=== PATIENT | male | born 1965 | race Caucasian/White ===

== ENCOUNTER → 2021-03-19 07:56 | Outpatient (BNVA) | payer SELFPAY | PROVIDERS: Visit Provider Internal Medicine | DX: Z02.79 Encounter for issue of other medical certificate (principal) ==

== ENCOUNTER 2024-11-28 14:27 | Outpatient (AMB) | payer OTHER, SELFPAY | END 2024-11-29 14:11 | disposition home or self-care (01) | LOC: HO.HMGAL 14:27 | PROVIDERS: Visit Provider Registered Nurse Emergency | DX: J30.89 Other allergic rhinitis (principal) | CPT/HCPCS: 95117; 95165 ==

== ENCOUNTER 2024-12-12 13:11 | Outpatient (AMB) | payer OTHER, SELFPAY ==
--- OUTSIDE RECORDS SUMMARY | 2024-12-12 15:34 | XMS_ITS | Clinical Summary ---
Author Organization [facility] Address [address] [place] [address] Care Team Providers Care Embedded Firmware Developer Name Role Phone Unavailable Primary Care Provider Unavailabl e Social History Tobacco Use Types Packs/Day Years Used Date Smoking Tobacco: Never Assessed Sex and Gender Information Value Date Recorded Sex Assigned at Not on file Gender Identity Not on file Sexual Orientation Not on file Plan of Treatment Not on file
== END 2024-12-12 13:12 | disposition home or self-care (01) ==
LOC: HO.HMGAL 13:11
PROVIDERS: Visit Provider Registered Nurse Emergency
DX: J30.89 Other allergic rhinitis (principal)
CPT/HCPCS: 95117; 95165

== ENCOUNTER 2025-01-11 11:01 | Outpatient (AMB) | payer OTHER, SELFPAY | END 2025-01-11 11:02 | disposition home or self-care (01) | LOC: HO.HMGAL 11:01 | PROVIDERS: PCP Internal Medicine; Visit Provider Registered Nurse Emergency | DX: J30.89 Other allergic rhinitis (principal) | CPT/HCPCS: 95117; 95165 ==

== ENCOUNTER 2025-01-25 14:52 | Outpatient (AMB) | payer OTHER, SELFPAY ==
--- OUTSIDE RECORDS SUMMARY | 2025-01-25 21:08 | XMS_ITS | Clinical Summary ---
Author Organization [facility] Address [address] [place] [address] Care Team Providers Care Client Support Associate Name Role Phone Unavailable Primary Care Provider Unavailabl e Social History Tobacco Use Types Packs/Day Years Used Date Smoking Tobacco: Never Assessed Sex and Gender Information Value Date Recorded Sex Assigned at Not on file Gender Identity Not on file Sexual Orientation Not on file Plan of Treatment Not on file
== END 2025-01-25 14:52 | disposition home or self-care (01) ==
LOC: HO.HMGAL 14:52
PROVIDERS: PCP Internal Medicine; Visit Provider Registered Nurse Emergency
DX: J30.89 Other allergic rhinitis (principal)
CPT/HCPCS: 95117; 95165

== ENCOUNTER 2025-02-01 15:20 | Outpatient (AMB) | payer OTHER, SELFPAY ==
--- OUTSIDE RECORDS SUMMARY | 2025-02-01 19:43 | XMS_ITS | Clinical Summary ---
Author Organization [facility] Address [address] [place] [address] Care Team Providers Care Last Dipper Name Role Phone Unavailable Primary Care Provider Unavailabl e Social History Tobacco Use Types Packs/Day Years Used Date Smoking Tobacco: Never Assessed Sex and Gender Information Value Date Recorded Sex Assigned at Not on file Gender Identity Not on file Sexual Orientation Not on file Plan of Treatment Not on file
== END 2025-02-01 15:21 | disposition home or self-care (01) ==
LOC: HO.HMGAL 15:20
PROVIDERS: PCP Internal Medicine; Visit Provider Registered Nurse Emergency
DX: J30.89 Other allergic rhinitis (principal)
CPT/HCPCS: 95117; 95165

== ENCOUNTER 2025-02-20 14:32 | Outpatient (AMB) | payer OTHER, SELFPAY | END 2025-02-20 14:33 | disposition home or self-care (01) | LOC: HO.HMGAL 14:32 | PROVIDERS: PCP Internal Medicine; Visit Provider Registered Nurse Emergency | DX: J30.89 Other allergic rhinitis (principal) | CPT/HCPCS: 95117; 95165 ==

== ENCOUNTER 2025-03-06 11:32 | Outpatient (AMB) | payer OTHER, SELFPAY ==
--- OUTSIDE RECORDS SUMMARY | 2025-03-06 15:14 | XMS_ITS | Clinical Summary ---
Author Organization [facility] Address [address] [place] [address] Care Team Providers Care Manager Industrial Name Role Phone Unavailable Primary Care Provider Unavailabl e Social History Tobacco Use Types Packs/Day Years Used Date Smoking Tobacco: Never Assessed Sex and Gender Information Value Date Recorded Sex Assigned at Not on file Gender Identity Not on file Sexual Orientation Not on file Plan of Treatment Not on file
== END 2025-03-06 11:36 | disposition home or self-care (01) ==
LOC: HO.HMGAL 11:32
PROVIDERS: PCP Internal Medicine; Visit Provider Registered Nurse Emergency
DX: J30.89 Other allergic rhinitis (principal)
CPT/HCPCS: 95117; 95165

== ENCOUNTER 2025-03-20 14:03 | Outpatient (AMB) | payer OTHER, SELFPAY ==
--- OUTSIDE RECORDS SUMMARY | 2025-03-20 20:28 | XMS_ITS | Patient Health Record ---
Author Organization [facility] Address [address] [place] [address] Care Team Providers Care Application Coordinator Name Role Phone MATTHIAS STAHL Primary Care Provider Allergies Allergen (clinical drug ingredient) Drug/Non Drug Allergy documented on EMR Reaction Allergy Type Onset Date Status Penicillin Unknown Drug Allergy Active Reason For Referral No Information Medications Medication SIG (Take, Route, Frequency, Duration) Notes Start Date End Date Status Omeprazole 20 MG Capsule Delayed Release TAKE 1 CAPSULE BY MOUTH EVERY DAY FOR 90 DAYS; Duration: 90 Active Social History Tobacco Use: Social History Observation Description Date Details (start date - stop date) Never Smoker NA - NA Social History Tobacco Use: Social Info Question Answer Notes Smoking Are you a: never smoker Additional Details Category Social Info Options Details General Occupation: [employer]os[employer] - [employer] asbestos exposure: no Past year's travels: None alcohol use: yes beer, wine: occ drug use: no Hobbies/Exercise habits: none Coffee/Tea/Soda: yes Tea: 1 cup/day Marital Status single experience yes [employer] Living with alone Pets dog smokers in household no Problems Problem Type SNOMED Code ICD Code Onset Dates Problem Status W/U Status Risk Notes Problem Gastroesophageal reflux disease (disorder) (043839084) GERD [Gastroesophag eal reflux disease] (530.81) Active confirmed Problem History of polyp of colon (534188105) PRSNL HST COLONIC POLYPS (V12.72) Active confirmed Problem Gastro-esophageal reflux disease without esophagitis (631845831) Gastro-esophag eal reflux disease without esophagitis (K21.9) Active confirmed Problem History of polyp of colon (situation) (746909044) Personal history of colonic polyps (Z86.010) Active confirmed Problem Disorder of lipoprotein storage and metabolism (disorder) (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 Metabolic Panel [id number] 2024 CBC, Platelet, No Differential-[id number] Next Appt Details Provider Name:MATTHIAS MONCADA, 03/21/2025 03:00:00 PM, [address] [place], [address], Insurance Providers Payer Name Payer Address Payer Phone Subscriber Number Group Number Insured Name Patient Relationship to Insured Coverage Start Date Coverage End Date [facility] [address] [place] [id number] SHELTON FERRARO Self - patient is the insured Medical (General) History Medical History History ICD Code Esophageal reflux EGD 04/06 - Severe EE / Defor med duodenal bulb, consistent w/old ulcer disease / Bx: gastric mucosa - Neg. H.Pylori C/G 04/17/11-Sig tubular Adenoma, no Hood etts Colonoscopy 12/29/2016 - Nrml recheck du e December 2021 COVID vaccinations 0. Flu shot q. year. Tdap 2018. Benign prostatic hypertrophy. Urologist Dr. Cl Gibbons Hyperlipidemia. Total choles terol 305 with LDL 181 HDL 92 triglycerides 161 September 2022. Patient has declined treatment PSA 0.07 September 2022 Colonoscopy September 2023 1 polyp recheck Ju ne 2028 tubular adenoma Surgical History Surgery Date(Month/Year) arthroscopic knee surgery - L 2003
--- OUTSIDE RECORDS SUMMARY | 2025-03-20 20:28 | XMS_ITS | Clinical Summary ---
Author Organization [facility] Prior to 09/03/24 Address [address] [place] [address] Care Team Providers Care Crystalizer Tender Name Role Phone Unavailable Primary Care Provider Unavailabl e Social History Tobacco Use Types Packs/Day Years Used Date Smoking Tobacco: Never Assessed Sex and Gender Information Value Date Recorded Sex Assigned at Not on file Gender Identity Not on file Sexual Orientation Not on file Plan of Treatment Not on file
== END 2025-03-20 14:03 | disposition home or self-care (01) ==
LOC: HO.HMGAL 14:03
PROVIDERS: PCP Internal Medicine; Visit Provider Registered Nurse Emergency
DX: J30.89 Other allergic rhinitis (principal)
CPT/HCPCS: 95117; 95165